=== PATIENT | female | born 1995 | race Caucasian/White ===

== ENCOUNTER 2018-03-24 13:16 | Emergency (ER) | payer SELFPAY ==
[~2018-03-24] VITALS: Ht 172.7 cm; Wt 89.0 kg
[2018-03-24 13:25] VITALS: BP 135/90
== END 2018-03-24 14:13 | disposition left against medical advice (07) ==
LOC: ER 13:22
DX: R10.9 Unspecified abdominal pain (principal); Z53.21 Procedure and treatment not carried out due to patient leaving prior to being seen by health care provider